=== PATIENT | female | born 1965 | race Caucasian/White ===

== ENCOUNTER 2020-10-27 11:50 | Emergency (ER) | payer MEDICAID ==
[~2020-10-27] VITALS: Ht 165.1 cm; Wt 65.8 kg
[2020-10-27 13:00] VITALS: BP_SYST 125
[2020-10-27] MEDS ORDERED: HYDROcodone/ACETAMIN 10-325 MG TAB PO ONE (14:30)
[2020-10-27] MEDS ORDERED: KETOROLAC TROMETHAMINE 60 MG/2 ML VIAL IM ONE (14:30)
--- NOTE | 2020-10-27 15:50 | NUR ---
Patient to ER bed 07 to gown for evaluation. Side rails up.
[2020-10-27] MEDS ORDERED: IBUP-1969 PO (16:32)
[2020-10-27] MEDS ORDERED: HYDR-3917 PO (16:32)
[2020-10-27 16:51] VITALS: BP_SYST 125
== END 2020-10-27 16:51 | disposition home or self-care (01) ==
LOC: SED 11:50
DX: G89.29 Other chronic pain (principal); M54.5 Low back pain; Z79.899 Other long term (current) drug therapy
CPT/HCPCS: 72100; 81002; 81025; 96372; 99283; J1885

== ENCOUNTER 2023-04-13 17:58 | Emergency (ER) | payer MEDICAID, OTHER ==
[~2023-04-13 17:58] MED LIST: HYDR-3917 PO; IBUP-1969 PO
== END 2023-04-13 18:20 | disposition left against medical advice (07) ==
LOC: SED 17:58
DX: H57.89 Other specified disorders of eye and adnexa (principal); Z53.21 Procedure and treatment not carried out due to patient leaving prior to being seen by health care provider